=== PATIENT | male | born 1995 | race Caucasian/White ===

== ENCOUNTER 2019-10-02 21:38 | Emergency (ER) | payer OTHER ==
[~2019-10-02] VITALS: Ht 182.9 cm; Wt 68.0 kg
[2019-10-02] MEDS ORDERED: LISI5 (22:03)
[2019-10-03] MEDS ORDERED: Norco 5-325 Ta1 EACH PO (00:10)
[2019-10-03] MEDS ORDERED: Robaxin-750750 MG PO (00:10)
[2019-10-03] MEDS ORDERED: IBU800 M1 PO (00:10)
== END 2019-10-03 00:41 | disposition home or self-care (01) ==
LOC: ER 21:38
DX: S30.0XXA Contusion of lower back and pelvis, initial encounter (principal); I10 Essential (primary) hypertension; V00.311A Fall from snowboard, initial encounter
CPT/HCPCS: 72100; 72220; 99283-25; A9270

== ENCOUNTER 2019-11-05 10:55 | Emergency (ER) | payer OTHER ==
[~2019-11-05] VITALS: Ht 185.4 cm; Wt 72.6 kg
[~2019-11-05 10:55] MED LIST: IBU800 M1 PO; LISI5 PO; Norco 5-325 Ta1 EACH PO; Robaxin-750750 MG PO
== END 2019-11-05 13:21 | disposition home or self-care (01) ==
LOC: ER 10:55
DX: R07.9 Chest pain, unspecified (principal); I10 Essential (primary) hypertension
CPT/HCPCS: 71046; 93005; 93010; 99283-25